=== PATIENT | male | born 1995 | race African-American/Black ===

== ENCOUNTER 2020-12-01 07:13 | Inpatient (IN) | payer BC ==
[~2020-12-01] VITALS: Ht 177.8 cm; Wt 81.4 kg
[2020-12-01 07:17] VITALS: BP 121/67
[2020-12-01 07:34] LABS: ABSOLUTE NEUTROPHILS 6.1 thou/uL (1.4-8.2); BASOPHILS 0.6 % (0.0-2.0); HEMATOCRIT 41.4 % (42.0-52.0); HEMOGLOBIN 13.5 gm/dL (14.0-18.0); LYMPHOCYTES 36.6 % (24.0-44.0); MCH 32.4 pg (26.0-34.0); MCHC 32.7 g/dL (28.0-37.0); MCV 99.1 fL (80.0-100.0); MONOCYTES 7.4 % (1.0-8.0); PLATELET COUNT 186 thou/uL (150-400); POLYS 54.4 % (36.0-66.0); RBC 4.18 mil/uL (4.50-6.00); RDW 12.2 % (10.5-14.5); WBC 11.2 thou/uL (4.0-11.0)
--- NOTE | 2020-12-01 07:36 | EKG ---
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 : 1995 Requested By: Gordy Jefferson Order Number: [id number] MD: Rhett Kaba Measurements Intervals [place] Rate: 32 P: [place]: QRS: 77 QRSD: 113 T: 61 QT: 572 QTc: 418 Interpretive Statements Sinus bradycardia Otherwise no significant abnormality No previous ECG available for comparison Electronically Signed On 12-01-2020 7:36:42 MESSAGING ARCHITECT by Rhett Kaba [email or web address] <ELECTRONICALLY SIGNED> By: Rhett Kaba MD, [facility] 12/01/20 0736 0729 0729 Rhett Kaba MD, [facility] /EPI
[2020-12-01 08:03] LABS: ALBUMIN 4.5 g/dL (3.4-5.0); AMYLASE 139 U/L (25-115); ANION GAP 14 mmol/L (7-16); BUN 18 mg/dL (7-18); CALCIUM 9.6 mg/dL (8.5-10.1); CHLORIDE 101 mmol/L (98-107); CO2 23 mmol/L (21-32); CREATININE 1.3 mg/dL (0.7-1.3); DIRECT BILIRUBIN 0.3 mg/dL (<0.1-0.2); GLUCOSE 91 mg/dL (74-106); LIPASE 207 U/L (73-393); MAGNESIUM 1.8 mg/dL (1.8-2.4); SGOT 41 U/L (15-37); SGPT 29 U/L (30-65); SODIUM 138 mmol/L (136-145); TOTAL BILIRUBIN 1.3 mg/dL (0.2-1.0); TOTAL PROTEIN 7.9 g/dL (6.4-8.2); TROPONIN-I <0.06 ng/mL (<0.06)
[2020-12-01 08:05] LABS: POTASSIUM 2.8 mmol/L (3.5-5.1)
[2020-12-01 08:29] LABS: URINE BILIRUBIN NEGATIVE (Negative); URINE BLOOD NEGATIVE (Negative); URINE CLARITY CLEAR; URINE COLOR YELLOW; URINE GLUCOSE-RANDOM* 2+ (Negative); URINE KETONES TRACE (Negative); URINE LEUKOCYTES-REFLEX NEGATIVE (Negative); URINE NITRITE-REFLEX NEGATIVE (Negative); URINE PROTEIN (DIPSTICK) NEGATIVE (Negative); URINE SPECIFIC GRAVITY 1.015 (1.005-1.035); URINE UROBILINOGEN 0.2 E.U./dl (0.2-1.0)
[2020-12-01 08:39] LABS: AMP/METHAMP Negative (Negative); BARBITURATES Negative (Negative); BENZODIAZEPINES Negative (Negative); COCAINE Negative (Negative); METHADONE Negative (Negative); OPIATES Negative (Negative); PCP Negative (Negative)
--- NOTE | 2020-12-01 10:10 | 2DMMODE ---
[facility] [place] [address] 2 D/M-MODE ECHOCARDIOGRAM Name: LI MORENO Room #: REG [facility]..#: [id number] Admission: 12/01/20 Attend Phys: Discharge: Date of : [birth year] Report #: [id number] THIS REPORT FOR: cc: SACHIN - Mary family physician/PCP SACHIN - Mary family physician/PCP Thor Caal MD [facility] ~ ADDENDUM APPROVED REPORT Study performed: 12/01/2020 09:11:26 EXAM: Comprehensive 2D, Doppler, and color-flow Echocardiogram Patient Location: ER Room #: 9 Status: stat BSA: 1.97 HR: 53 bpm BP: 165/120 mmHg Rhythm: Bradycardia Other Information Study Quality: Excellent Indications Dyspnea Hypertension/HDD 2D Dimensions RVDd: 30.42 mm IVSd: 6.43 (7-11mm) LVOT Diam: 21.61 (18-24mm) LVDd: 47.20 mm PWd: 8.34 (7-11mm) Ascending Ao: 28.63 (22-36mm) LVDs: 37.38 (25-40mm) Left Atrium: 27.67 (27-40mm) Aortic Root: 31.46 mm IVC: 12.00 mm Volumes Left Atrial Volume (Systole) Single Plane 4CH: 31.09 mL Single Plane 2CH: 24.39 mL LA ESV Index: 16.00 mL/m2 Aortic Valve AoV Peak Ashish.: 1.01 m/s AO Peak Gr.: 4.06 mmHg LVOT Max P.75 mmHg LVOT Max V: 0.83 m/s [facility] [address] [place] [address] 2 D/M-MODE ECHOCARDIOGRAM Name: LI MORENO Room #: REG OSBALDO Najera#: [id number] Admission: 12/01/20 Attend Phys: Discharge: Date of : [birth year] Report #: [id number] Vmax: 3.02 cm2 Mitral Valve E/A Ratio: 1.1 MV Decel. Time: 206.04 ms MV E Max Ashish.: 0.57 m/s MV A Ashish.: 0.51 m/s MV PHT: 59.75 ms IVRT: 179.93 ms Pulmonary Valve PV Peak Ashish.: 0.92 m/s PV Peak Gr.: 3.37 mmHg Pulmonary Vein P Vein S: 0.45 m/s P Vein A: 0.22 m/s P Vein D: 0.38 m/s P Vein A Dur.: 110.7 msec P Vein S/D Ratio: 1.18 Left Ventricle The left ventricle is normal size. There is normal LV segmental wall motion. There is normal left ventricular wall thickness. Left ventricular systolic function is normal. The left ventricular ejection fraction is within the normal range. LVEF is 50%. The left ventricular diastolic function is normal. Right Ventricle The right ventricle is normal size. The right ventricular systolic function is normal. Atria The left atrium size is normal. The right atrium size is normal. Aortic Valve The aortic valve is normal in structure. No aortic regurgitation is present. There is no aortic valvular stenosis. Mitral Valve The mitral valve is normal in structure. There is no mitral valve regurgitation noted. No evidence of mitral valve stenosis. Tricuspid Valve The tricuspid valve is normal in structure. There is no tricuspid valve regurgitation noted. Pulmonic Valve [facility] [address] [place] [address] 2 D/M-MODE ECHOCARDIOGRAM Name: LI MORENO Room #: RHYS Najera#: [id number] Admission: 12/01/20 Attend Phys: Discharge: Date of : [birth year] Report #: [id number] The pulmonary valve is normal in structure. There is no pulmonic valvular regurgitation. Great Vessels The aortic root is normal in size. IVC is normal in size and collapses >50% with inspiration. Pericardium There is no pericardial effusion. <Conclusion> Normal left ventricular size/wall thickness Low normal EF 50% Grade 1 diastolic function Normal right ventricular size/function Normal atrial size Normal aortic/mitral valve structure and function No evidence of tricuspid valve insufficiency Normal IVC size/response to respiration No pericardial effusion <ELECTRONICALLY SIGNED> By: Thor Caal MD, [facility] 12/01/20 1009 D: [id number] Thor Caal MD, FACC /INF
[2020-12-01 10:26] VITALS: BP 122/66
[2020-12-01 10:45] VITALS: BP 121/73
[2020-12-01 16:00] VITALS: BP 120/70
--- NOTE | 2020-12-01 18:00 | NUR ---
PT ADMITTED TO THE FLOOR FOR BRADYCARDIA AND DYSPNEA. PT TO THE FLOOR STABLE WITH NO SIGNS OF DISTRESS NOTED AT THIS TIME TEMPERATURE 97.2 PT CONT FOR BEAR HUGGER FOR AN ADDITONAL 2 HRS. MOM AT BEDSIDE. PT HAS NO CONCERNS BESIDES WANTING TO GO HOME AND TO FIGURE OUT WHY THIS IS HAPPENEING. ROOM ORIENTED AND REFRESHMENTS PROVIDED.
[2020-12-01 19:02] VITALS: BP 112/54
[2020-12-01 19:08] VITALS: BP 129/71
--- NOTE | 2020-12-01 22:00 | NUR ---
ASSESSMENT COMPLETED.PT ALERT AND ORIENTED. CALM AND COOPERATIVE, TALKING ON THE PHONE. VOIDING ADEQUATELY VIA URINAL. SR/SA ON TELEMETRY. DENIES ANY SOA OR COUGH. TEMP WNL W/O CARMELLA STOVALLER. CONTINUES ON FLUID RESUSCITATION.WILL CONTINUE WITH POC TILL EOS.
[2020-12-02 03:44] VITALS: BP 123/74
[2020-12-02 07:54] VITALS: BP 128/75
--- NOTE | 2020-12-02 09:01 | NUR ---
ASSUMED CARE FOR PATIENT AT 0700. PT RESTING AT THIS TIME. ASSESSMENT PERFORMED. VSS. WILL CONTINUE TO MONITOR. EXPLAINED TO PATIENT ABX THERAPY AND BLOOD CULTURE RESULTS.
[2020-12-02 10:02] LABS: HEMATOCRIT 40.9 % (42.0-52.0); HEMOGLOBIN 13.7 gm/dL (14.0-18.0); MCH 32.7 pg (26.0-34.0); MCHC 33.4 g/dL (28.0-37.0); MCV 97.9 fL (80.0-100.0); RBC 4.17 mil/uL (4.50-6.00); RDW 12.4 % (10.5-14.5); WBC 5.4 thou/uL (4.0-11.0)
[2020-12-02 10:14] LABS: CALCIUM 8.7 mg/dL (8.5-10.1); CREATININE 1.1 mg/dL (0.7-1.3); MAGNESIUM 1.7 mg/dL (1.8-2.4); POTASSIUM 3.8 mmol/L (3.5-5.1)
[2020-12-02 11:42] VITALS: BP 1113/60
[2020-12-02 15:27] VITALS: BP 124/76
--- NOTE | 2020-12-02 18:56 | HC ---
[facility] [place] [address] CONSULTATION Name: LI MORENO Room #: 209-P ADM IN M.R.#: [id number] Admission: 12/01/20 Attend Phys: Cory Hills MD Discharge: Date of : [birth year] Report #: [id number] THIS REPORT FOR: cc: FAM - No family physician/PCP FAM - No family physician/PCP Ritchie Gee MD ~ DATE OF SERVICE: 12/01/2020 INFECTIOUS DISEASE CONSULTATION REASON FOR CONSULTATION: I was asked to evaluate concerning possible sepsis with hypothermia. 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 When out to drink after his work day yesterday, had several hard liquor drinks throughout the night. Woke up this morning nauseous, bradycardic, diaphoretic, short of breath, called EMS and brought him into the Emergency Room where he was hypothermic and bradycardic. He has had no vomiting or diarrhea. He has had no chest pain or palpitations. Denies any dysuria, frequency, back or flank pain. No travel. No specific COVID exposure noted. No history of cardiovascular disease or pulmonary disease. He feels that he drank more hard liquor than he typically would on a night. REVIEW OF SYSTEMS: A 14-point review was negative other than what has been described above. Overall, states now he feels much improved. He is hungry, does not feel short of breath or sweaty. PAST MEDICAL HISTORY: Fractured forearm and one episode of alcohol intoxication. FAMILY HISTORY: Noncontributory. SOCIAL HISTORY: Nonsmoker of tobacco. Does use marijuana, drinks alcohol. No other HIV risk factors noted. ALLERGIES: None known. MEDICATIONS: None prior to his admission. PHYSICAL EXAMINATION: VITAL SIGNS: Afebrile and hemodynamically stable. SKIN: Without rash or decubitus. No palpable adenopathy. EYES: Without scleral icterus. MOUTH: Without mucositis. [facility] [address] [place] [address] CONSULTATION Name: LI MORENO Room #: 209-P [facility] IN M.R.#: [id number] Admission: 12/01/20 Attend Phys: Cory Hills MD Discharge: Date of : [birth year] Report #: [id number] NECK: Supple. LUNGS: Clear. HEART: Regular, without murmur, gallop or rub. ABDOMEN: Soft, nontender, no hepatosplenomegaly or mass. GENITOURINARY: External genitalia without mass or lesion. EXTREMITIES: Without clubbing, cyanosis or edema. NEUROLOGIC: Cranial nerves intact. Strength in his upper and lower extremities was normal. Mood and affect within normal limits. LABORATORY STUDIES: Reviewed. MICROBIOLOGY: Reviewed. Chest x-ray reviewed. IMPRESSION: A 25 years old with hypothermia and bradycardia which is now resolving. In addition, he has elevated CPK. His alcohol level was 24. I suspect this is related to his alcohol intoxication. No evidence of infection at this point in time, but would observe overnight. <ELECTRONICALLY SIGNED> By: Ritchie Gee MD 12/02/20 1856 1612 29 Ritchie Gee MD /nt
[2020-12-02 19:07] LABS: LYME ANTIBODY SCREEN* <0.91 ISR (0.00-0.90)
[2020-12-02 20:19] VITALS: BP 138/78
--- NOTE | 2020-12-03 03:34 | NUR ---
ASSESSMENT: PT REMAIN ALERT AND ORIENT TIMES FOUR. UP AD LUIS MANUEL IN THE ROOM. VSS, AFEBRILE. SB PER MONITOR. DENIES DIZZINESS AND HEART PALPITATIONS. GUMARO STARTED THIS SHIFT. PT GRAM POSITIVE COCCI. S/O IN THE ROOM DURING THIS SHIFT. DENIES PAIN, SOB AND N/V. SLOW PROGRESS TOWARDS DC GOALS, WILL CONTINUE TO MONITOR.
[2020-12-03 04:00] VITALS: BP 129/86
[2020-12-03 07:44] VITALS: BP 123/84
--- NOTE | 2020-12-03 09:39 | NUR ---
ASSUMED PT CARE AT 0700. PT RESTING, PLAYING PLAY STATION. PT DENIES PAIN AT THIS TIME. PT ASSESSMENT PERFORMED CHARTED. VSS. WILL CONTINUE TO MONITOR.
[2020-12-03 11:42] VITALS: BP 127/88
[2020-12-03 13:09] VITALS: BP 127/88
--- NOTE | 2020-12-04 07:35 | EKG ---
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 : 1995 Requested By: Cory Hills Order Number: [id number] MD: Thor Caal Measurements Intervals [place] Rate: 94 P: 68 [place]: 152 QRS: 72 QRSD: 109 T: 54 QT: 392 QTc: 491 Interpretive Statements Sinus rhythm RSR' in V1 or V2, right VCD or RVH Prolonged QT interval Compared to ECG 12/01/2020 07:29:02 Right ventricular hypertrophy now present RSR' in V1 or V2 now present Prolonged QT interval now present Sinus bradycardia no longer present Electronically Signed On 12-04-2020 7:35:11 [employer] by Thor Caal [email or web address] <ELECTRONICALLY SIGNED> By: Thor Caal MD, FAC 12/04/20 0735 0756 0756 Thor Caal MD, FAC /EPI
== END 2020-12-03 14:15 | disposition home or self-care (01) | DRG 641 ==
LOC: ER 07:13 → 2N 10:58
PROVIDERS: Emergency Medicine; ADMIT Internal Medicine; ATTEND Internal Medicine
DX: E87.6 Hypokalemia (principal); R00.1 Bradycardia, unspecified; E83.42 Hypomagnesemia; J44.9 Chronic obstructive pulmonary disease, unspecified; R68.0 Hypothermia, not associated with low environmental temperature; F12.90 Cannabis use, unspecified, uncomplicated; F17.210 Nicotine dependence, cigarettes, uncomplicated; F10.129 Alcohol abuse with intoxication, unspecified; Z20.822 Contact with and (suspected) exposure to COVID-19
CPT/HCPCS: 10194